=== PATIENT | male | born 1955 | race African-American/Black ===

== ENCOUNTER 2016-11-15 07:59 | Emergency (ER) | payer BC ==
[~2016-11-15] VITALS: Ht 175.3 cm; Wt 136.0 kg
[2016-11-15] MEDS ORDERED: GLIP2.5T3 PO (08:10)
[2016-11-15] MEDS ORDERED: METF500T4 PO (08:10)
[2016-11-15] MEDS ORDERED: HYDR-2510 PO (08:10)
[2016-11-15] MEDS ORDERED: ATEN-42 PO (08:10)
[2016-11-15] MEDS ORDERED: ACETAMINOPHEN 500MG TABLET PO ONE (11:45)
[2016-11-15 13:50] VITALS: BP 141/95
== END 2016-11-15 13:52 | disposition home or self-care (01) ==
LOC: ER 08:49
DX: S00.93XA Contusion of unspecified part of head, initial encounter (principal); M25.512 Pain in left shoulder; M13.861 Other specified arthritis, right knee; W01.0XXA Fall on same level from slipping, tripping and stumbling without subsequent striking against object, initial encounter; Y93.89 Activity, other specified; Y92.89 Other specified places as the place of occurrence of the external cause; Y99.8 Other external cause status
CPT/HCPCS: 70450; 73030; 73562; 99284